=== PATIENT | male | born 1965 | race Caucasian/White ===

== ENCOUNTER 2018-09-13 06:31 | Day surgery (SDC) | payer BC ==
[~2018-09-13 06:31] MED LIST: Lactated Ringers 1,000 ML IV SCH; ceFAZolin 2 GM in Premix Bag 1 BAG IV ONE
--- NOTE | 2018-09-13 07:09 | PCM.PREANE ---
Preanesthetic Assessment - Anesthesia/Transfusion/Family Hx Anesthesia History: Prior Anesthesia Without Reaction Family History of Anesthesia Reaction: No Transfusion History: No Prior Transfusion(s) Intubation History: Unknown - Review of Systems General: No Symptoms Pulmonary: No Symptoms Cardiovascular: No Symptoms Gastrointestinal: No Symptoms Neurological: No Symptoms Other: Reports: None - Physical Assessment Height: 1.78 m Weight: 108.862 kg ASA Class: 2 Mental Status: Alert & Oriented x3 Airway Class: Mallampati = 2 Dentition: Reports: Normal Dentition (lower teeth badly grinded), Dentures ( upper) Thyro-Mental Finger Breadths: 3 Mouth Opening Finger Breadths: 2 (small mouth) ROM/Head Extension: Full Lungs: Clear to Auscultation, Normal Respiratory Effort Cardiovascular: Regular Rate, Regular Rhythm - Allergies Allergies/Adverse Reactions: Allergies Allergy/AdvReac Type Severity Reaction Status Date / Time tetanus toxoid, adsorbed Allergy Rash Verified 09/10/18 10:17 - Blood Blood Available: No - Anesthesia Plan Pre-Op Medication Ordered: None - Acknowledgements Anesthesia Type Planned: General Anesthesia Pt an Appropriate Candidate for the Planned Anesthesia: Yes Alternatives and Risks of Anesthesia Discussed w Pt/Guardian: Yes Pt/Guardian Understands and Agrees with Anesthesia Plan: Yes PreAnesthesia Questionnaire HEENT History: Reports: Other (See Below) Other HEENT History: uses reading glasses, has upper denture Cardiovascular History: Reports: High Cholesterol Gastrointestinal History: Reports: Other (See Below) Other Gastrointestinal History: occasional heartburn, uses TUMS Musculoskeletal History: Reports: Osteoarthritis Endocrine/Metabolic History: Reports: Obesity/BMI 30+ - Past Surgical History Head Surgeries/Procedures: Reports: None GI Surgical History: Reports: Colonoscopy Musculoskeletal Surgical History: Reports: Arthroscopic Knee, Carpal Tunnel, Knee Replacement Other Musculoskeletal Surgeries/Procedures:: bilateral CTR, Bilateral knee arthroscopies, Left TKA - SUBSTANCE USE Smoking Status *Q: Former Smoker (quit years ago) Tobacco Use Within Last Twelve Months: Smokeless Tobacco Recreational Drug Use History: No - HOME MEDS Home Medications: Home Meds Hydrocodone/Acetaminophen [Hydrocodon-Acetaminophn 10-325] 1 tab PO BEDTIME PRN 09/10/18 [History] Naproxen [Naprosyn] 500 mg PO ASDIRECTED PRN 09/10/18 [History] Zolpidem [Ambien] 5 mg PO BEDTIME PRN 09/10/18 [History] atorvaSTATin [Lipitor] 20 mg PO DAILY 09/10/18 [History] - CURRENT (IN HOUSE) MEDS Current Meds: Current Medications Lactated Ringer's (Ringers, Lactated) 1,000 mls @ 125 mls/hr IV ASDIRECTED CHAUNCEY Discontinued Medications Cefazolin Sodium/Dextrose 2 gm (/ Premix) 50 mls @ 100 mls/hr IV ONETIME ONE Stop: 09/12/18 20:33
[2018-09-13] MEDS ORDERED: Bupivacaine 0.5% 30 ML SDV ONE (07:26)
[2018-09-13] MEDS ORDERED: Lidocaine 1% 20 ML MDV ONE (07:26)
[2018-09-13] MEDS ORDERED: Midazolam 1 MG/ML 2 ML SDV ONE (07:28)
[2018-09-13] MEDS ORDERED: Propofol 200 MG/20 ML SDV ONE ×2 (07:28→08:35)
[2018-09-13] MEDS ORDERED: fentaNYL 100 MCG/2 ML SDV ONE ×2 (07:28→08:03)
[2018-09-13] MEDS ORDERED: diphenhydrAMINE 50 MG/ML SDV ONE (08:07)
[2018-09-13] MEDS ORDERED: ceFAZolin/Dextrose,Iso-Osmotic 2 GM/50 ML Duplex Bag IV ONE (08:23)
--- NOTE | 2018-09-13 09:21 | PCM.OPNOTE ---
- General Post-Op/Procedure Note Date of Surgery/Procedure: 09/13/18 Operative Procedure(s): excision of mass left foot Findings: consistent with diagnosis Pre Op Diagnosis: mass left foot Post-Op Diagnosis: mass left foot Anesthesia Technique: Local, MAC Primary Surgeon: Mike Weeks Anesthesia Provider: Jesica Cooper Pathology: mass left foot EBL in mLs: 3 Complications: none Condition: Good Free Text/Narrative:: materials: 3-0 vicryl, 4-0 vicryl, 4-0 Stratafix injectables: preop: 10 ml 1:1 mix of 1% lidocaine plain and 0.5% marcaine plain , postop: 10 ml 0.5% marcaine plain
[2018-09-13] MEDS ORDERED: Acetaminophen/HYDROcodone 325-10 MG Tab PO PRN (09:38)
[2018-09-13] MEDS ORDERED: Acetaminophen/HYDROcodone 325-10 MG Tab ONE (09:48)
--- NOTE | 2018-09-13 11:29 | PN ---
Preoperative Progress Note The patient is a 52-year-old male. DATE OF SURGERY: 09/13/2018 SURGEON: Mike Weeks DPM. PLANNED PROCEDURE: Excision of mass, left foot. MEDICAL HISTORY: Allergies to tetanus. Current problems are arthritis and hyperlipidemia. ACTIVE MEDICATIONS: 1. Hydrocodone 10/325 at night as needed for arthritis pain. 2. Atorvastatin 20 mg daily. 3. Zolpidem 5 mg as needed. 4. Naproxen 500 mg as needed. PAST SURGICAL HISTORY: Carpal tunnel release, arthroscopic bilateral knees, and left knee replacement in 2016. The patient has had no difficulty with anesthesia on previous surgeries. LABORATORY DATA: Sodium 139, potassium 4.2, chloride 106, CO2 of 27, creatinine is 0.94, BUN is 23, glucose is 87. PT 9.3, INR 0.9. Hemoglobin 15.0, hematocrit 42.6, red blood cell 4.68, white blood cell 4.22, platelets 219. EKG showed normal sinus rhythm. Chest x-ray showed borderline cardiomegaly, but otherwise was negative chest x-ray. The patient presents for surgery today for excision of mass, left foot. All of patient's questions were answered. No guarantees given or implied. Risks and benefits have been thoroughly discussed with the patient. LOBO MASON /[id number]
--- NOTE | 2018-09-14 01:32 | OR ---
SURGEON: Mike Weeks DPM DATE OF PROCEDURE: 09/13/2018 PREOPERATIVE DIAGNOSIS: Mass, left foot. POSTOPERATIVE DIAGNOSIS: Mass, left foot. OPERATIVE PROCEDURE: Excision of mass, left foot. ANESTHESIA: MAC and local. HEMOSTASIS: Above ankle pneumatic tournequit inflated to 250 mm Hg. PATHOLOGY: Mass from left foot. ESTIMATED BLOOD LOSS: 3 mL. COMPLICATIONS: None seen. MATERIALS: 3-0 Vicryl, 4-0 Vicryl, 4-0 Stratafix. INJECTABLES: Local anesthesia given prior to the beginning of the procedure, 10 mL of a 1:1 mixture of 1% lidocaine plain and 0.5% Marcaine plain. Postoperatively, 10 mL of 0.5% Marcaine plain. JUSTIFICATION FOR THE PROCEDURE: The patient has suffered for many months with a slowly growing mass on the left foot. He underwent ultrasound examination in April of this year, which revealed a well-circumscribed solid avascular mass, most likely involving the extensor tendons on the left foot. Conservative measures are not possible to treat this condition and the patient needed to wait at that time due to other priorities. However, he recently expressed his willingness and readiness for surgical excision of the mass and was cleared for surgery by Dr. Santiago with no contraindications noted. The patient's questions have all been answered and risks and benefits of the surgery discussed. No guarantees expressed or implied. The patient has consented in writing with a witness present for excision of mass from the left foot today. PROCEDURE IN DETAIL: Excision of mass, left foot. The patient was brought to the operating room, placed on the operating table in supine position, at which time an aseptic scrub and drape was performed about the patient's left lower extremity. The surgical site was planned with a marking pen measuring approximately 4 cm proximal to distal over the clearly visible and palpable mass. The area was injected in a V - block fashion with 10 mL of the mixture of 1% lidocaine plain and 0.5% Marcaine plain as the patient was under MAC anesthesia for this procedure. Esmarch bandage exsanguination was performed and the above ankle pneumatic tourniquet was inflated to pressure of 250 mmHg. The Esmarch bandage was then released and the procedure began with an incision following the planned incision line which was from proximal to distal over the dorsal lateral left foot with the center of the mass used for the incision line. Care was taken to Bovie any small bleeders and cut, clamp, or retract any bleeders and structures as needed and incision was deepened through the skin and subcutaneous tissue to the level of the dorsal aspect of the mass which was then carefully dissected free and undermined using a combination of sharp and blunt dissection. A remnant of what was thought to be the portion of the tendon going to the fourth toe was dissected free from the mass and preserved during the removal of the mass. However, it was later determined that there was fully intact tendon deep to the mass and that the mass most likely involved at some point a portion of the extensor tendon. The mass was removed in total and placed in a specimen container to be sent to pathology for gross and histologic examination. The mass measured approximately 3 cm x 3 cm x 1.5 cm. Remnants of the mass material removed when identified and the area was flushed with copious amounts of normal sterile saline, re-examined and with no remaining material noted, was closed, deeper tissue closed with 3-0 Vicryl, subcutaneous level with 4-0 Vicryl and superficial skin with 4-0 Stratafix suture and a subcuticular stitch. Steri - Strips were overlaid. 10 mL of 0.5% Marcaine plain was infiltrated about the surgical site and the site was covered with Betadine-soaked Xeroform gauze, followed by 4 x 4, fluffs, and Roberto bandage. During this time, the tourniquet was deflated at a time of 45 minutes. ESTIMATED BLOOD LOSS: For this procedure was 3 mL. The patient tolerated the anesthesia and the procedure well and had a prompt hyperemic response to all digits of the left foot following deflation of the tourniquet. The patient was transported from the operating room to the recovery room with vital signs stable and no complications were noted during the procedure. The patient will be following up in my office next week once he returns from a trip out of town he is about to begin and has written instructions for postoperative care. LOBO MASON /[id number] MAJO
== END 2018-09-13 10:25 | disposition home or self-care (01) ==
LOC: MW.SDS 06:31
PROVIDERS: ATTEND Podiatrist Foot & Ankle Surgery
DX: D21.22 Benign neoplasm of connective and other soft tissue of left lower limb, including hip (principal); E78.5 Hyperlipidemia, unspecified; M19.90 Unspecified osteoarthritis, unspecified site; Z79.1 Long term (current) use of non-steroidal anti-inflammatories (NSAID); Z79.899 Other long term (current) drug therapy; Z88.7 Allergy status to serum and vaccine; F17.220 Nicotine dependence, chewing tobacco, uncomplicated
CPT/HCPCS: 28039; 88305; A9270; J0690; J1200; J2250; J2704; J3010; J3490; J7120; 01470

== ENCOUNTER 2021-11-24 14:34 | Day surgery (SDC) | payer BC ==
[~2021-11-24 14:34] MED LIST changes: -ceFAZolin 2 GM in Premix Bag 1 BAG IV ONE
[2021-11-24] MEDS ORDERED: Propofol 200 MG/20 ML SDV ONE ×2 (16:21→17:09)
[2021-11-24] MEDS ORDERED: fentaNYL 100 MCG/2 ML SDV ONE (16:21)
== END 2021-11-24 17:51 | disposition home or self-care (01) ==
LOC: MW.SDS 14:34
PROVIDERS: ATTEND Surgery
DX: D12.0 Benign neoplasm of cecum (principal); M17.12 Unilateral primary osteoarthritis, left knee; G47.33 Obstructive sleep apnea (adult) (pediatric); I10 Essential (primary) hypertension; E78.00 Pure hypercholesterolemia, unspecified; E66.9 Obesity, unspecified; Z68.37 Body mass index [BMI] 37.0-37.9, adult; Z88.7 Allergy status to serum and vaccine; Z79.899 Other long term (current) drug therapy; Z86.16 Personal history of COVID-19; Z98.890 Other specified postprocedural states; Z87.891 Personal history of nicotine dependence
CPT/HCPCS: 45380; J2704; J3010; J7120; 00811